=== PATIENT | male | born 1985 | race Caucasian/White ===

== ENCOUNTER 2018-09-27 00:13 | Emergency (ER) | payer OTHER ==
[~2018-09-27] VITALS: Ht 165.1 cm; Wt 83.9 kg
[2018-09-27 00:25] VITALS: BP_SYST 164
--- NOTE | 2018-09-27 00:25 | NUR ---
Patient to [facility] for evaluation. Side rails up. Report received from ENRIQUE Franco
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
--- NOTE | 2018-09-27 00:37 | NUR ---
Written and verbal consent obtained from patient for blood alcohol, name and verified by patient. Disinfected patient's skin with Betadine that did not contain alcohol or other volatile organic compound. Collected the blood from the subject named by venipuncture, in the presence of Officer hawa Gray [id number]. Used a sterile, dry hypodermic needle and dry vacuum blood collection. The dry vacuum blood collection was supplied by the officer named above. Withdrew a specimen of blood from RAC of the subject named above. Inverted the blood tube several times to ensure that the preservative and anticoagulant were thoroughly mixed in the blood specimen. I initialed the blood tube label for identification. The labeled blood tube was handed directly to the Officer named above. The blood tube stopper remained in place while I had possession of the blood tube. The Officer placed tube into envelope and sealed it in my presence. Envelope initialed by myself and Officer named above. Patient tolerated well, bandage applied, and bleeding controlled.
--- NOTE | 2018-09-27 00:46 | NUR ---
ER Dr. Al at bedside examining patient.
[2018-09-27 00:54] VITALS: BP_SYST 164
--- NOTE | 2018-09-27 00:54 | NUR ---
Patient and [employer] officer given written and verbal discharge instructions and verbalizes understanding. ER MD Al discussed with patient the results and treatment provided. Patient in stable condition. ID arm band removed. No Rx given. Patient educated on pain management and to follow up with PMD in 2-3 days. Pain Scale 0/10 Opportunity for questions provided and answered.
== END 2018-09-27 00:54 ==
LOC: SED 00:13
DX: Z02.89 Encounter for other administrative examinations (principal); R03.0 Elevated blood-pressure reading, without diagnosis of hypertension; Z88.1 Allergy status to other antibiotic agents; Z88.2 Allergy status to sulfonamides; V47.9XXA Unspecified car occupant injured in collision with fixed or stationary object in traffic accident, initial encounter; Y93.89 Activity, other specified; Y92.410 Unspecified street and highway as the place of occurrence of the external cause; Y99.8 Other external cause status
CPT/HCPCS: 99283